=== PATIENT | male | born 1980 | race American Indian/Alaskan Native ===

== ENCOUNTER 2017-09-22 14:01 | Emergency (ER) | payer OTHER ==
[2017-09-22 14:35] VITALS: BP 153/89
[2017-09-22] MEDS ORDERED: MOTRIN PO ONE (16:44)
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
== END 2017-09-22 17:06 | disposition home or self-care (01) ==
LOC: ED 14:01
DX: S13.4XXA Sprain of ligaments of cervical spine, initial encounter (principal); V89.2XXA Person injured in unspecified motor-vehicle accident, traffic, initial encounter; Y93.89 Activity, other specified; Y92.89 Other specified places as the place of occurrence of the external cause; Y99.8 Other external cause status
CPT/HCPCS: 99282

== ENCOUNTER 2020-10-06 10:08 | Emergency (ER) | payer BC, MEDICAID ==
[2020-10-06] MEDS ORDERED: SODIUM CHLORIDE 0.9% 1000 ML 1,000 ML IV ONE (10:43)
[2020-10-06] MEDS ORDERED: diphenhydrAMINE 50 MG/ML VIAL IV ONE (10:43)
[2020-10-06] MEDS ORDERED: FAMOTIDINE 20 MG/2 ML INJ IV ONE (10:43)
[2020-10-06] MEDS ORDERED: methylPREDNISolone Sod Succinate 125 MG/2 ML INJ IV ONE (10:43)
--- NOTE | 2020-10-06 10:48 | Emergency Department Report ---
ED Allergic Reaction HPI - General Chief complaint: Allergic Reaction Stated complaint: ALLERGIC REACTION Time Seen by Provider: 10/06/20 10:43 Source: patient Mode of arrival: Ambulatory Limitations: No Limitations - History of Present Illness Initial Comments: Patient is 39 years old male with no significant past medical history. Patient presented to the ER complaining of generalized rash and itching started all of a sudden this morning. Patient stated that he has a toothache and he took one of his pain medicine that he usually take and he went to [facility] and as soon as he started eating he started itching and swelling. Patient stated that he has slight difficulty swallowing and mild shortness of breath. He denied any other symptoms. MD Complaint: allergic reaction, hives, facial swelling -: Sudden, This morning Exposure: food, medication Symptoms: rash, itching, facial swelling, difficulty swallowing Severity: moderate Treatment Prior to Arrival: none Previous Allergy History: none - Related Data Previous Rx's Medication Instructions Recorded Last Taken Type Cyclobenzaprine [Flexeril] 10 mg PO QHS PRN #7 tablet 09/22/17 Unknown Rx Ibuprofen [Motrin] 600 mg PO Q8H PRN #30 tablet 09/22/17 Unknown Rx Amoxicillin [Amoxicillin TAB] 875 mg PO BID #14 tablet 10/06/20 Unknown Rx Famotidine [Pepcid] 40 mg PO QHS #5 tablet 10/06/20 Unknown Rx Prednisone [predniSONE 10 mg 10 mg PO .TAPER #1 tab.ds.pk 10/06/20 Unknown Rx (6-Day Pack, 21 Tabs)] diphenhydrAMINE [Benadryl CAP] 25 mg PO Q8HR PRN #20 capsule 10/06/20 Unknown Rx Allergies Allergy/AdvReac Type Severity Reaction Status Date / Time No Known Allergies Allergy Verified 10/06/20 10:18 ED Review of Systems ROS: Stated complaint: ALLERGIC REACTION Other details as noted in HPI Comment: All other systems reviewed and negative Constitutional: denies: chills, fever Respiratory: shortness of breath. denies: cough, wheezing Cardiovascular: denies: chest pain, palpitations Gastrointestinal: denies: abdominal pain, nausea, vomiting Musculoskeletal: denies: back pain Neurological: denies: headache, weakness, numbness, paresthesias, confusion ED Past Medical Hx - Past Medical History Previous Medical History?: No - Surgical History Past Surgical History?: No - Social History Smoking Status: Never Smoker Substance Use Type: None - Medications Home Medications: Home Medications Medication Instructions Recorded Confirmed Last Taken Type Cyclobenzaprine [Flexeril] 10 mg PO QHS PRN #7 tablet 09/22/17 Unknown Rx Ibuprofen [Motrin] 600 mg PO Q8H PRN #30 tablet 09/22/17 Unknown Rx Amoxicillin [Amoxicillin TAB] 875 mg PO BID #14 tablet 10/06/20 Unknown Rx Famotidine [Pepcid] 40 mg PO QHS #5 tablet 10/06/20 Unknown Rx Prednisone [predniSONE 10 mg 10 mg PO .TAPER #1 tab.ds.pk 10/06/20 Unknown Rx (6-Day Pack, 21 Tabs)] diphenhydrAMINE [Benadryl CAP] 25 mg PO Q8HR PRN #20 capsule 10/06/20 Unknown Rx ED Physical Exam - General Limitations: No Limitations General appearance: alert, in no apparent distress - Head Head exam: Present: atraumatic, normocephalic, normal inspection - Eye Eye exam: Present: normal appearance, PERRL - ENT ENT exam: Present: normal exam, normal orophraynx, mucous membranes moist - Neck Neck exam: Present: normal inspection, full ROM. Absent: tenderness, meningismus - Respiratory Respiratory exam: Present: normal lung sounds bilaterally - Cardiovascular Cardiovascular Exam: Present: tachycardia - GI/Abdominal GI/Abdominal exam: Present: soft, normal bowel sounds. Absent: distended, tenderness, guarding, rebound, rigid, organomegaly, mass, bruit, pulsatile mass, hernia - Extremities Exam Extremities exam: Present: full ROM, normal capillary refill - Back Exam Back exam: Present: normal inspection. Absent: CVA tenderness (R), CVA tenderness (L) - Neurological Exam Neurological exam: Present: alert, oriented X3, CN II-XII intact - Psychiatric Psychiatric exam: Present: normal mood - Skin Skin exam: Present: warm, dry, intact, rash, urticaria ED Course Vital Signs 10/06/20 10/06/20 10/06/20 10:23 10:34 10:41 Temperature 99.0 F Pulse Rate 103 H 91 H Respiratory 20 Rate Blood Pressure 137/82 124/72 O2 Sat by Pulse 97 Oximetry 05/24/21 05/24/21 05/24/21 11:01 11:31 12:01 Temperature Pulse Rate Respiratory 21 19 17 Rate Blood Pressure 127/78 122/84 114/76 O2 Sat by Pulse 97 98 97 Oximetry 10/06/20 10/06/20 10/06/20 12:31 13:01 14:01 Temperature Pulse Rate 70 Respiratory 18 17 16 Rate Blood Pressure 118/79 128/78 140/89 O2 Sat by Pulse 98 96 96 Oximetry 10/06/20 10/06/20 14:31 15:01 Temperature Pulse Rate 73 Respiratory 17 17 Rate Blood Pressure 131/85 124/83 O2 Sat by Pulse 97 96 Oximetry - Reevaluation(s) Reevaluation #1: 10/06/20 13:25 Patient stated that he is feeling much better. He stated that the itching is settling down and he does not have any difficulty swallowing or shortness of breath. ED Medical Decision Making - Medical Decision Making Patient is 39 years old male with no significant past medical history. Patient presented to the ER complaining of generalized rash and itching started all of a sudden this morning. Patient stated that he has a toothache and he took one of his pain medicine that he usually take and [facility] and as soon as he started eating he started itching and swelling. Patient stated that he has slight difficulty swallowing and mild shortness of breath. He denied any other symptoms. Patient received Solu-Medrol, Benadryl and Pepcid. Patient stated that he is feeling much better. Patient observed in the ER for more than 4 hours. Patient given prescription for prednisone Benadryl and Pepcid. I also prescribed amoxicillin for his dental abscess and advised to follow-up with his primary doctor in the next 2 to 3 days and to return to the ER if he develop any new symptoms. Critical care attestation.: If time is entered above; I have spent that time in minutes in the direct care of this critically ill patient, excluding procedure time. ED Disposition Clinical Impression: Acute allergic reaction, Dental abscess Disposition: TO HOME OR SELFCARE Is pt being admited?: No Condition: Stable Instructions: Allergies, Adult, [id number], Dental Abscess Prescriptions: Famotidine [Pepcid] 40 mg PO QHS #5 tablet Amoxicillin [Amoxicillin TAB] 875 mg PO BID #14 tablet diphenhydrAMINE [Benadryl CAP] 25 mg PO Q8HR PRN #20 capsule PRN Reason: Itching Prednisone [predniSONE 10 mg (6-Day Pack, 21 Tabs)] 10 mg PO .TAPER #1 tab.ds.pk Referrals: PRIMARY CARE, [Primary Care Provider] - 3-5 Days
[2020-10-06 15:49] VITALS: BP 119/76
== END 2020-10-06 15:40 | disposition home or self-care (01) ==
LOC: ED 10:08
DX: T78.49XA Other allergy, initial encounter (principal); K04.7 Periapical abscess without sinus; Z79.899 Other long term (current) drug therapy; X58.XXXA Exposure to other specified factors, initial encounter
CPT/HCPCS: 96361; 96374; 96375; 99282; J1200; J2930; J7030

== ENCOUNTER 2021-03-13 15:17 | Emergency (ER) | payer MEDICAID ==
[2021-03-13 16:01] VITALS: BP 132/92
[2021-03-13] MEDS ORDERED: HYDROGEN PEROXIDE 118 ML SOLUTION TP STA (16:21)
--- NOTE | 2021-03-13 16:53 | Emergency Department Report ---
ED General Adult HPI - General Chief complaint: Extremity Injury, Upper Stated complaint: RIGHT HAND MIDDLE FINGER SWOLLEN Time Seen by Provider: 03/13/21 16:02 Source: patient Mode of arrival: Ambulatory Limitations: No Limitations - History of Present Illness Initial comments: 40 yo AA M pt presents with complaints of right middle finger pain and swelling x 1 week. Patient reports he was seen at an urgent care yesterday and prescribed Keflex however his symptoms have not improved. He denies being a nail biter or any penetrating injuries to the finger. No difficulty moving the finger or fever/chills/sweats per patient. Past medical history includes hidradenitis suppurativa. - Related Data Previous Rx's Medication Instructions Recorded Last Taken Type Cyclobenzaprine [Flexeril] 10 mg PO QHS PRN #7 tablet 09/22/17 Unknown Rx Ibuprofen [Motrin] 600 mg PO Q8H PRN #30 tablet 09/22/17 Unknown Rx Amoxicillin [Amoxicillin TAB] 875 mg PO BID #14 tablet 10/06/20 Unknown Rx Famotidine [Pepcid] 40 mg PO QHS #5 tablet 10/06/20 Unknown Rx Prednisone [predniSONE 10 mg 10 mg PO .TAPER #1 tab.ds.pk 10/06/20 Unknown Rx (6-Day Pack, 21 Tabs)] diphenhydrAMINE [Benadryl CAP] 25 mg PO Q8HR PRN #20 capsule 10/06/20 Unknown Rx Allergies Allergy/AdvReac Type Severity Reaction Status Date / Time No Known Allergies Allergy Verified 10/06/20 10:18 ED Review of Systems ROS: Stated complaint: RIGHT HAND MIDDLE FINGER SWOLLEN Other details as noted in HPI Constitutional: denies: chills, diaphoresis, fever, malaise, weakness Musculoskeletal: joint swelling. denies: arthralgia Skin: change in color Neurological: denies: numbness, paresthesias ED Past Medical Hx - Past Medical History Previous Medical History?: Yes - Surgical History Past Surgical History?: No - Social History Smoking Status: Never Smoker Substance Use Type: None - Medications Home Medications: Home Medications Medication Instructions Recorded Confirmed Last Taken Type Cyclobenzaprine [Flexeril] 10 mg PO QHS PRN #7 tablet 09/22/17 Unknown Rx Ibuprofen [Motrin] 600 mg PO Q8H PRN #30 tablet 09/22/17 Unknown Rx Amoxicillin [Amoxicillin TAB] 875 mg PO BID #14 tablet 10/06/20 Unknown Rx Famotidine [Pepcid] 40 mg PO QHS #5 tablet 10/06/20 Unknown Rx Prednisone [predniSONE 10 mg 10 mg PO .TAPER #1 tab.ds.pk 10/06/20 Unknown Rx (6-Day Pack, 21 Tabs)] diphenhydrAMINE [Benadryl CAP] 25 mg PO Q8HR PRN #20 capsule 10/06/20 Unknown Rx ED Physical Exam - General Limitations: No Limitations General appearance: alert, in no apparent distress - Head Head exam: Present: atraumatic, normocephalic - Eye Eye exam: Present: normal appearance. Absent: scleral icterus - Respiratory Respiratory exam: Absent: respiratory distress - Cardiovascular Cardiovascular Exam: Present: regular rate - Neurological Exam Neurological exam: Present: alert, oriented X3 - Psychiatric Psychiatric exam: Present: normal affect, normal mood - Skin Skin exam: Present: warm, dry, intact, other (Paronychia noted to right middle finger with mild erythema; normal perfusion and sensation and range of motion of the fingers noted). Absent: rash ED Course Vital Signs 03/13/21 16:00 Temperature 98.1 F Pulse Rate 64 Respiratory 16 Rate Blood Pressure 132/92 [Right] O2 Sat by Pulse 98 Oximetry - I & D Finger Site: Right middle finger Blade Size: 11 I & D Procedure: betadine prep, sterile drapes applied, sterile dressing applied Progress: Moderate purulent drainage obtained from wound. Finger soaked in hydrogen peroxide. Minimal bleeding occurred. Patient tolerated procedure well without any immediate complications. He has normal sensation, range of motion, and perfusion of the finger post procedure ED Medical Decision Making - Medical Decision Making 40 yo AA M pt presents with complaints of right middle finger pain and swelling x 1 week. Patient reports he was seen at an urgent care yesterday and prescribed Keflex however his symptoms have not improved. He denies being a nail biter or any penetrating injuries to the finger. No difficulty moving the finger or fever/chills/sweats per patient. Past medical history includes hidradenitis suppurativa. Incision and drainage performed. Wound care discussed in detail with patient. He is to continue on Keflex for the next 9 days as prescribed. Signs and symptoms that should prompt immediate return to the ED were discussed in detail with patient who verbalizes understanding. Critical care attestation.: If time is entered above; I have spent that time in minutes in the direct care of this critically ill patient, excluding procedure time. ED Disposition Clinical Impression: Paronychia Disposition: 01 HOME / SELF CARE / HOMELESS Is pt being admited?: No Instructions: Paronychia, Amniocentesis, Care After, [id number] Referrals: PRIMARY CARE, [Primary Care Provider] - 3-5 Days [facility] [Provider Group] - 3-5 Days Forms: Work/School Release Form(ED)
== END 2021-03-13 18:44 | disposition home or self-care (01) ==
LOC: ED 15:17
DX: L03.011 Cellulitis of right finger (principal); L73.2 Hidradenitis suppurativa
CPT/HCPCS: 99282